=== PATIENT | male | born 1945 | race Caucasian/White ===

== ENCOUNTER 2016-05-17 15:00 | Outpatient (RCR) | payer MEDICARE ==
[2016-05-01] VITALS (14 sets, daily range): BP systolic 106–135; BP diastolic 22–50; PULSE 58–67; TEMP 97.4–98.4
[2016-05-01 12:53] LABS: HEMATOCRIT 16.4 % (42.0-52.0); HEMOGLOBIN 4.5 g/dl (13.5-18.0)
[2016-05-01 18:54] LABS: MEAN CELL VOLUME 93 fl (80.0-100.0); MEAN CORPUSCULAR HGB CONC 30 g/dl (33.0-37.0); MEAN PLATELET VOLUME 9.7 fl (7.4-10.4); PLATELET COUNT 208 K/mm3 (130-400); RED BLOOD COUNT 2.07 M/mm3 (4.20-5.60); REDCELL DISTRIBUTION WIDTH-CV 15.7 % (11.5-14.5); WHITE BLOOD COUNT 5.1 K/mm3 (4.8-10.8)
[2016-05-01 19:05] LABS: HEMATOCRIT 19.3 % (42.0-52.0); MEAN CORPUSCULAR HEMOGLOBIN 28 pg (27.0-31.0)
[2016-05-01 19:06] LABS: HEMOGLOBIN 5.7 g/dl (13.5-18.0)
[~2016-05-17] VITALS: Ht 175.3 cm; Wt 102.0 kg
[2016-05-17] VITALS (9 sets, daily range): BP systolic 105–146; BP diastolic 32–58; PULSE 55–65; TEMP 97.4–98.2
[~2016-05-17 15:00] MED LIST: ASPIRIN E.C. 8181 MG PO; CARDIOSTEROL; CENTRUM SILVER1 CTB PO; COLCRYS0.6 MG PO; FERROUS SU325 MG/TAB PO; FISH OIL1000 MG PO; GLUCOPHAGE500 MG/TAB PO; LOPRESSOR 550 MG/TAB PO; MEVACOR40 MG PO; NIACIN500 M3 PO; NIACOR500 MG PO; NORCO 325 MG-51 TAB PO; PRILOSEC 20MG20 MG PO; PRINIVIL20 MG PO; SYNTHROID0.175 MG PO; TRADJENTA5 MG PO; VITAMIN D1000 IU PO; ZYLOPRIM 300MG300 MG PO
[2016-05-17 22:25] LABS: HEMATOCRIT 24.8 % (42.0-52.0); HEMOGLOBIN 7.4 g/dl (13.5-18.0)
== END 2016-07-30 | disposition home or self-care (01) ==
LOC: EUO
PROVIDERS: Family Medicine
DX: D64.89 Other specified anemias (principal)
CPT/HCPCS: J7050; P9016

== ENCOUNTER 2016-06-25 10:52 | Outpatient (RCR) | payer MEDICARE ==
[~2016-06-25] VITALS: Ht 175.3 cm; Wt 102.2 kg
[2016-06-25] VITALS (8 sets, daily range): BP systolic 107–146; BP diastolic 36–54; PULSE 56–59; TEMP 97.3–98.2
[2016-06-25 18:29] LABS: HEMATOCRIT 24.3 % (42.0-52.0); HEMOGLOBIN 7.2 g/dl (13.5-18.0)
== END 2016-06-25 17:21 | disposition home or self-care (01) ==
LOC: EUO 10:52
PROVIDERS: Family Medicine
DX: K31.819 Angiodysplasia of stomach and duodenum without bleeding (principal); D64.9 Anemia, unspecified
CPT/HCPCS: P9016

== ENCOUNTER 2017-04-03 06:17 | Observation (INO) | payer MEDICARE ==
[~2017-04-03] VITALS: Ht 180.3 cm; Wt 112.0 kg
[2017-04-03] VITALS (23 sets, daily range): BP systolic 108–157; BP diastolic 45–68; PULSE 57–64; TEMP 97.4–98.2
[2017-04-04 04:08] VITALS: BP 164/50; PULSE 51; TEMP 98.3
== END 2017-04-04 09:50 | disposition home or self-care (01) ==
LOC: SDCO 06:17 → SURG 16:14 → SDCO 16:19 → SURG 16:19
DX: K43.9 Ventral hernia without obstruction or gangrene (principal); K42.9 Umbilical hernia without obstruction or gangrene; Z79.82 Long term (current) use of aspirin; E11.9 Type 2 diabetes mellitus without complications; Z79.84 Long term (current) use of oral hypoglycemic drugs; E78.00 Pure hypercholesterolemia, unspecified; E03.9 Hypothyroidism, unspecified; G47.30 Sleep apnea, unspecified; I25.2 Old myocardial infarction; I11.9 Hypertensive heart disease without heart failure; K21.9 Gastro-esophageal reflux disease without esophagitis; Z80.1 Family history of malignant neoplasm of trachea, bronchus and lung; Z86.73 Personal history of transient ischemic attack (TIA), and cerebral infarction without residual deficits
CPT/HCPCS: C1713; C1781; G0378; J0360; J0690; J1100; J1885; J2405; J2704; J2710; J3010; J7120

== ENCOUNTER 2018-03-04 10:14 | Outpatient (CLI) | payer MEDICARE ==
[2018-03-04] VITALS (10 sets, daily range): BP systolic 119–135; BP diastolic 32–47; PULSE 46–58; TEMP 96.9–97.4
[~2018-03-04] VITALS: Ht 180.3 cm; Wt 111.5 kg
[2018-03-04 16:15] LABS: HEMATOCRIT 26.8 % (42.0-52.0); HEMOGLOBIN 8.2 g/dl (13.5-18.0)
== END 2018-03-04 16:19 | disposition home or self-care (01) ==
LOC: EUO 10:14
PROVIDERS: Family Medicine
DX: D62 Acute posthemorrhagic anemia (principal); K31.819 Angiodysplasia of stomach and duodenum without bleeding
CPT/HCPCS: J7050; P9016

== ENCOUNTER 2018-06-10 08:00 | Outpatient (RCR) | payer MEDICARE ==
[2018-06-10] VITALS (9 sets, daily range): BP systolic 112–145; BP diastolic 41–67; PULSE 48–53; TEMP 97.2–98.5
== END 2018-06-10 14:00 ==
LOC: EUO 08:00
DX: D62 Acute posthemorrhagic anemia (principal)
CPT/HCPCS: J7050; P9016

== ENCOUNTER 2019-09-15 08:40 | Day surgery (SDC) | payer MEDICARE ==
[2019-09-15] VITALS (273 sets, daily range): BP systolic 121–151; BP diastolic 56–70; PULSE 42–57; TEMP 97.3–98.5; O2SAT 92–100
[~2019-09-15] VITALS: Ht 180.3 cm; Wt 112.5 kg
[~2019-09-15 08:40] MED LIST changes: -PRINIVIL20 MG PO; +PRINIVIL5 MG PO
[2019-09-15 09:30] LABS: INR 1.1 (0.8-3.0); PROTHROMBIN TIME 11.9 SECONDS (9.7-12.8)
[2019-09-15] MEDS ORDERED: IMDUR 30MG30 MG/TAB PO (09:32)
[2019-09-15 09:33] LABS: PARTIAL THROMBOPLASTIN TIME 34.5 SECONDS (26.0-37.0)
[2019-09-15 09:41] LABS: HEMATOCRIT 30.6 % (42.0-52.0); HEMOGLOBIN 9.9 g/dl (13.5-18.0); MEAN CELL VOLUME 104 fl (80.0-100.0); MEAN CORPUSCULAR HEMOGLOBIN 34 pg (27.0-31.0); MEAN CORPUSCULAR HGB CONC 32 g/dl (33.0-37.0); MEAN PLATELET VOLUME 10.5 fl (7.4-10.4); PLATELET COUNT 136 K/mm3 (130-400); RED BLOOD COUNT 2.95 M/mm3 (4.20-5.60); REDCELL DISTRIBUTION WIDTH-CV 14.6 % (11.5-14.5)
[2019-09-15 09:43] LABS: CALCIUM 9.3 mg/dL (8.4-10.2); CREATININE, serum 1.76 (0.66-1.25); POTASSIUM 5.2 mmol/L (3.4-5.0)
--- NOTE | 2019-09-15 10:55 | NUR ---
SEE MERGE DOCUMENTATION FOR MEDICATION ADMINISTRATION AND INTRA/POST PROCEDURE SEDATION ASSESSMENTS.
--- NOTE | 2019-09-15 12:45 | NUR ---
Pt received from aquatic life laborer with nitro drip infusing at 10 mcg/hr.
--- NOTE | 2019-09-15 19:00 | NUR ---
RECEIVED REPORT FROM GRAY TREVIÑO. PT SITTING UP IN BED WATCHING TV ON RA. CALL LIGHT WITHIN REACH.
[2019-09-16] VITALS (262 sets, daily range): BP systolic 119–136; BP diastolic 56–84; PULSE 51–57; TEMP 98–98.5; O2SAT 85–99
--- NOTE | 2019-09-16 03:40 | NUR ---
PT REQUESTS TO USE HOME CPAP MACHINE, HELPED SET UP. 5ML TAKEN OUT OF SAFEGUARD, NO BLEEDING NOTED. GOOD PEDAL PULSES AND COLOR TO RLE. CALL LIGHT WITHIN REACH.
[2019-09-16 05:43] LABS: BASO % 0.6 % (0.0-2.0); EOS # 0.2 (0.0-0.7); EOS % 4.2 % (0-4.0); GRAN # 3.6 (1.4-6.5); GRAN % 76.3 % (42.2-75.2); LYMPH # 0.4 (1.2-3.4); LYMPH % 8.2 % (20.0-51.0); MEAN CELL VOLUME 104 fl (80.0-100.0); MEAN CORPUSCULAR HGB CONC 33 g/dl (33.0-37.0); MEAN PLATELET VOLUME 10.7 fl (7.4-10.4); MONO # 0.5 (0.1-0.6); MONO % 10.5 % (1.7-9.3); PLATELET COUNT 128 K/mm3 (130-400); RED BLOOD COUNT 2.78 M/mm3 (4.20-5.60); REDCELL DISTRIBUTION WIDTH-CV 14.6 % (11.5-14.5)
[2019-09-16 05:48] LABS: HEMATOCRIT 28.9 % (42.0-52.0); HEMOGLOBIN 9.6 g/dl (13.5-18.0); MEAN CORPUSCULAR HEMOGLOBIN 35 pg (27.0-31.0)
[2019-09-16 05:53] LABS: CALCIUM 9.2 mg/dL (8.4-10.2); CREATININE, serum 1.64 (0.66-1.25); POTASSIUM 5.1 mmol/L (3.4-5.0)
[2019-09-16] MEDS ORDERED: RANEXA 500MG T500 MG PO (08:25)
[2019-09-16] MEDS ORDERED: LIPITOR 40MG TA40 MG PO (08:26)
[2019-09-16] MEDS ORDERED: IMDUR 60MG60 MG/TAB PO (08:27)
[2019-09-16] MEDS ORDERED: NORVASC2.5 MG PO (08:28)
--- NOTE | 2019-09-16 10:13 | NUR ---
URSZULA met with the patient to complete initial intake. The patient lives alone in [place]. The patient uses a CPAP and receives supplies from [facility]. The patient is independent with ADLs. The patient's PCP is Dr. Broussard and patient receives medications from [facility] pharmacy. The patient does not have advanced directives in the EMR but states they are completed and designate his brother, Stacy ([phone]). The patient plans to return home at discharge and Stacy will provide transportation. The patient has no concerns about returning home. There are no additional needs at this time.
--- NOTE | 2019-09-16 11:08 | NUR ---
Patient discharged. post cath instructions reviewed. follow up appointment and medication changes reviewed. patient is taken home by his brother.
== END 2019-09-16 11:05 | disposition home or self-care (01) ==
LOC: COL.CAR 08:40 → ICU 13:17 → COL.CAR 09-16 11:05
PROVIDERS: Internal Medicine Cardiovascular Disease
DX: I25.110 Atherosclerotic heart disease of native coronary artery with unstable angina pectoris (principal); I08.0 Rheumatic disorders of both mitral and aortic valves; I10 Essential (primary) hypertension; I25.2 Old myocardial infarction; E11.9 Type 2 diabetes mellitus without complications; E78.5 Hyperlipidemia, unspecified; M10.9 Gout, unspecified; Z95.1 Presence of aortocoronary bypass graft; Z79.82 Long term (current) use of aspirin; Z88.8 Allergy status to other drugs, medicaments and biological substances; Z79.84 Long term (current) use of oral hypoglycemic drugs; Z11.59 Encounter for screening for other viral diseases
CPT/HCPCS: OP; C1725; C1760; C1769; C1887; C1894; J0583; J1644; J2250; J3010; Q9967

== ENCOUNTER 2019-12-24 15:36 | Outpatient (RCR) | payer MEDICARE ==
[~2019-12-24 15:36] MED LIST changes: +IMDUR 30MG30 MG/TAB PO; +IMDUR 60MG60 MG/TAB PO; +LIPITOR 40MG TA40 MG PO; +NORVASC2.5 MG PO; +RANEXA 500MG T500 MG PO
== END 2019-12-27 16:27 | disposition home or self-care (01) ==
LOC: COL.CR 15:36
DX: Z48.812 Encounter for surgical aftercare following surgery on the circulatory system (principal); I20.0 Unstable angina

== ENCOUNTER 2020-01-31 13:57 | Outpatient (RCR) | payer MEDICARE ==
[2020-01-31] VITALS (9 sets, daily range): BP systolic 107–129; BP diastolic 41–89; PULSE 56–59; TEMP 97.9–98.7
[~2020-01-31] VITALS: Ht 180.3 cm; Wt 106.8 kg
[~2020-01-31 13:57] MED LIST changes: +GLUCOPHAGE XR500 M1 PO; -GLUCOPHAGE500 MG/TAB PO
[2020-01-31] MEDS ORDERED: NITROSTAT0.4 MG/TAB SL (16:13)
== END 2020-02-01 06:58 | disposition home or self-care (01) ==
LOC: EUO 13:57
DX: D62 Acute posthemorrhagic anemia (principal)
CPT/HCPCS: J7050; P9016

== ENCOUNTER 2021-03-23 11:05 | Inpatient (IN) | payer MEDICARE ==
[2021-03-23] VITALS (240 sets, daily range): BP systolic 121–140; BP diastolic 58–71; PULSE 77–90; TEMP 97.8–98.2; O2SAT 82–100
[~2021-03-23] VITALS: Ht 180.3 cm; Wt 107.2 kg
[~2021-03-23 11:05] MED LIST changes: +NITROSTAT0.4 MG/TAB SL
[2021-03-23 11:57] LABS: BASO # 0.1 K/mm3 (0.0-0.2); BASO % 0.4 % (0.0-2.0); EOS % 0.1 % (0.0-4.0); GRAN # 10.2 K/mm3 (1.4-6.5); HEMATOCRIT 37.1 % (42.0-52.0); HEMOGLOBIN 12.1 g/dl (13.5-18.0); LYMPH # 0.6 K/mm3 (1.2-3.4); LYMPH % 5.1 % (20.0-51.0); MEAN CELL VOLUME 104 fl (80.0-100.0); MEAN CORPUSCULAR HEMOGLOBIN 34 pg (27-31); MEAN CORPUSCULAR HGB CONC 33 g/dl (33.0-37.0); MEAN PLATELET VOLUME 10.5 fl (7.4-10.4); MONO # 1.4 K/mm3 (0.1-0.6); MONO % 10.9 % (1.7-9.3); PLATELET COUNT 294 K/mm3 (130-400); RED BLOOD COUNT 3.57 M/mm3 (4.20-5.60); REDCELL DISTRIBUTION WIDTH-CV 15.1 % (11.5-14.5)
[2021-03-23 12:09] LABS: ALBUMIN 3.1 gm/dL (3.4-4.8); BILIRUBIN,TOTAL 1.4 mg/dL (0.2-1.2); C-REACTIVE PROTEIN 29.9 mg/dL (0.00-0.50); CALCIUM 9.4 mg/dL (8.4-10.2); CREATININE, serum 4.44 mg/dL (0.72-1.25); TOTAL PROTEIN 7.8 gm/dL (6.2-8.1)
[2021-03-23 12:22] LABS: POTASSIUM 4.2 mmol/L (3.5-4.5); TROPONIN-I 0.068 ng/mL (0.00-0.033)
[2021-03-23 13:39] LABS: ARTERIAL BLD GAS TCO2 CT 15.2; ARTERIAL BLOOD GAS BASE EXCESS -8.2 (-2-2); ARTERIAL BLOOD GAS HCO3 14.5 meq/L (22-26); ARTERIAL BLOOD GAS PO2 56.5 mmHg (80-100); ARTERIAL BLOOD GAS pH 7.41 (7.35-7.45)
[2021-03-23 13:40] LABS: ARTERIAL BLOOD GAS PCO2 23.3 mmHg (35-45)
[2021-03-23 15:10] LABS: ARTERIAL BLOOD GAS pH 7.39 (7.35-7.45)
[2021-03-23 15:11] LABS: ARTERIAL BLD GAS O2 SATURATION 92.2 % (92-100); ARTERIAL BLOOD GAS BASE EXCESS -9.7 (-2-2); ARTERIAL BLOOD GAS HCO3 13.5 meq/L (22-26); ARTERIAL BLOOD GAS PCO2 22.9 mmHg (35-45)
[2021-03-23 18:40] LABS: PARTIAL THROMBOPLASTIN TIME 30.4 SECONDS (26.0-37.0)
[2021-03-23] MEDS ORDERED: IMDUR 60MG60 MG/TAB PO (19:21)
[2021-03-23] MEDS ORDERED: LIPITOR 40MG TA40 MG PO (19:22)
[2021-03-23] MEDS ORDERED: RANEXA 500MG T500 MG PO (19:22)
[2021-03-23] MEDS ORDERED: NORVASC2.5 MG PO (19:22)
[2021-03-23] MEDS ORDERED: LOPRESSOR 550 MG/TAB PO (19:22)
[2021-03-23 19:23] LABS: ARTERIAL BLD GAS O2 SATURATION 97.3 % (92-100); ARTERIAL BLD GAS TCO2 CT 16.3; ARTERIAL BLOOD GAS BASE EXCESS -7.9 (-2-2); ARTERIAL BLOOD GAS HCO3 15.5 meq/L (22-26); ARTERIAL BLOOD GAS PCO2 26.4 mmHg (35-45); ARTERIAL BLOOD GAS pH 7.39 (7.35-7.45)
[2021-03-23] MEDS ORDERED: GLUCOPHAGE XR500 M1 PO (19:23)
[2021-03-23] MEDS ORDERED: PRINIVIL5 MG PO (19:23)
[2021-03-23] MEDS ORDERED: SYNTHROID 0.10.15 MG PO (19:23)
[2021-03-23] MEDS ORDERED: ZYLOPRIM 300MG300 MG PO (19:24)
--- NOTE | 2021-03-23 21:45 | NUR ---
Assessment complete and charted. Patient alert and orientated on bipap. Denies needs. Call light in reach.
[2021-03-24] VITALS (734 sets, daily range): BP systolic 122–150; BP diastolic 32–80; PULSE 66–81; TEMP 96.5–98.8; O2SAT 76–100
--- NOTE | 2021-03-24 05:49 | NUR ---
Patient had uneventful night. Remained on bipap during night without difficulty. Denies needs this AM. Call light in reach.
--- NOTE | 2021-03-24 07:09 | NUR ---
Report given to GRAY Parikh
[2021-03-24 07:27] LABS: MEAN CELL VOLUME 102 fl (80.0-100.0); MEAN CORPUSCULAR HGB CONC 33 g/dl (33.0-37.0); MEAN PLATELET VOLUME 10.4 fl (7.4-10.4); PLATELET COUNT 212 K/mm3 (130-400); RED BLOOD COUNT 2.98 M/mm3 (4.20-5.60); REDCELL DISTRIBUTION WIDTH-CV 14.9 % (11.5-14.5)
[2021-03-24 07:28] LABS: HEMATOCRIT 30.5 % (42.0-52.0); MEAN CORPUSCULAR HEMOGLOBIN 34 pg (27-31)
[2021-03-24 07:39] LABS: ALBUMIN 2.5 gm/dL (3.4-4.8); BILIRUBIN,TOTAL 0.8 mg/dL (0.2-1.2); CALCIUM 8.6 mg/dL (8.4-10.2); CREATININE, serum 3.39 mg/dL (0.72-1.25); POTASSIUM 4.3 mmol/L (3.5-4.5); TOTAL PROTEIN 6.4 gm/dL (6.2-8.1)
--- NOTE | 2021-03-24 08:00 | NUR ---
Shift assessment complete. All GTTs, lines, checked, VSS. Pt still on BIPAP. During morning med pass, BIPAP was removed for PO medication. PT was able to have a sip of water before medication, PT coughed a lot and stated " felt like the water went down the wrong tube." PO medication was held and BIPAP placed back on after PT stopped coughing. PT SATs fell to 79 % during this time, once BIPAP was placed, PT SATs went to 100 % quickly.
[2021-03-24 08:25] LABS: COLLECTION METHOD CLEAN CATCH
[2021-03-24 08:33] LABS: MUCOUS Present (NOT PRESENT); PH 5 (5-8); SQUAMOUS EPITHELIAL None Seen /hpf (0-10); URINE APPEARANCE Hazy (CLEAR/HAZY); URINE BACTERIA None Seen /hpf (NONE SEEN); URINE BILIRUBIN Negative (NEGATIVE); URINE BLOOD Negative (NEGATIVE); URINE COLOR Amber (YELLOW); URINE GLUCOSE Negative (NEGATIVE); URINE KETONE Trace (NEGATIVE); URINE LEUKOCYTE ESTERASE Negative (NEGATIVE); URINE NITRATE Negative (NEGATIVE); URINE PROTEIN(semi-quant) 1+ (NEGATIVE); URINE RBC 0-2 /hpf (0-2); URINE UROBILINOGEN Negative (NEGATIVE); URINE WBC 0-2 /hpf (0-2)
--- NOTE | 2021-03-24 09:00 | NUR ---
US tech at bedside performing ECHO.
[2021-03-24 09:03] LABS: HYPOCHROMIA 1+; LYMPHOCYTE 3 % (20.0-51.0); NEUTROPHILS 94 % (42.0-75.2); PLATELET ESTIMATE NORMAL (NORMAL)
--- NOTE | 2021-03-24 09:40 | NUR ---
HEPXA- AT GOAL NO CHANGE
--- NOTE | 2021-03-24 13:56 | NUR ---
Budget And Policy Analyst contacted patient's brother, Stacy (ph#[phone]) to complete initial intake as patient is on bipap in isolation for covid. Stacy reports he is actually admitted to the hospital as well in room 301. Per Stacy, patient lives alone in [place] and sees Dr. Broussard for primary care. Patient does not normally use any DME and is independent with ADLS. Stacy states patient does have many health issues. Stacy advised that he is not sure if patient has any Advance Directives. Per Stacy, patient is , has no children, and his parents are . Patient has two brothers, Stacy and Tk, who lives in [place]. Discharge Plan: Pending, patient currently on bipap
[2021-03-24 14:50] LABS: ARTERIAL BLD GAS O2 SATURATION 90.9 % (92-100); ARTERIAL BLD GAS TCO2 CT 15.4; ARTERIAL BLOOD GAS BASE EXCESS -8.2 (-2-2); ARTERIAL BLOOD GAS HCO3 14.7 meq/L (22-26); ARTERIAL BLOOD GAS PO2 58.7 mmHg (80-100); ARTERIAL BLOOD GAS pH 7.41 (7.35-7.45)
[2021-03-24 14:51] LABS: ARTERIAL BLOOD GAS PCO2 23.7 mmHg (35-45)
[2021-03-24 16:12] LABS: HEMOGLOBIN 9.5 g/dl (13.5-18.0)
--- NOTE | 2021-03-24 19:56 | NUR ---
Assessment complete and charted. Patient on bipap. Denies needs. Call light in reach.
[2021-03-24 21:48] LABS: CREATININE, serum 2.89 mg/dL (0.72-1.25)
[2021-03-24 21:58] LABS: FRACTIONAL EXCRETION OF NA+ 0.76 %
[2021-03-25] VITALS (680 sets, daily range): BP systolic 128–161; BP diastolic 62–109; PULSE 69–98; TEMP 98.6–99.6; O2SAT 83–100
--- NOTE | 2021-03-25 06:36 | NUR ---
Patient remained on bipap throughout night. Resting in bed this AM. Call light in reach.
[2021-03-25 06:38] LABS: BASO % 0.2 % (0.0-2.0); GRAN % 89.1 % (42.2-75.2); HEMOGLOBIN 10.1 g/dl (13.5-18.0); LYMPH # 0.3 K/mm3 (1.2-3.4); LYMPH % 2.8 % (20.0-51.0); MEAN CELL VOLUME 102 fl (80.0-100.0); MEAN CORPUSCULAR HEMOGLOBIN 34 pg (27-31); MEAN CORPUSCULAR HGB CONC 33 g/dl (33.0-37.0); MEAN PLATELET VOLUME 10.4 fl (7.4-10.4); MONO # 0.9 K/mm3 (0.1-0.6); MONO % 6.9 % (1.7-9.3); PLATELET COUNT 222 K/mm3 (130-400); RED BLOOD COUNT 2.98 M/mm3 (4.20-5.60); REDCELL DISTRIBUTION WIDTH-CV 15.1 % (11.5-14.5)
[2021-03-25 06:40] LABS: HEMATOCRIT 30.5 % (42.0-52.0)
[2021-03-25 07:06] LABS: ALBUMIN 2.5 gm/dL (3.4-4.8); BILIRUBIN,TOTAL 0.7 mg/dL (0.2-1.2); CALCIUM 8.8 mg/dL (8.4-10.2); CREATININE, serum 2.74 mg/dL (0.72-1.25); POTASSIUM 3.8 mmol/L (3.5-4.5); TOTAL PROTEIN 6.3 gm/dL (6.2-8.1)
--- NOTE | 2021-03-25 07:15 | NUR ---
Report given to GRAY Parikh
[2021-03-25 07:32] LABS: BILIRUBIN,DIRECT 0.4 mg/dL (0.0-0.5)
--- NOTE | 2021-03-25 08:00 | NUR ---
Assessment complete. All lines, GTTs checked and verified. PT denies any pain or needs at this time. Call light within reach. PT is still on BIPAP.
[2021-03-25 08:57] LABS: ARTERIAL BLD GAS O2 SATURATION 92.3 % (92-100); ARTERIAL BLD GAS TCO2 CT 16.6; ARTERIAL BLOOD GAS BASE EXCESS -6.5 (-2-2); ARTERIAL BLOOD GAS HCO3 15.9 meq/L (22-26); ARTERIAL BLOOD GAS pH 7.45 (7.35-7.45)
[2021-03-25 08:58] LABS: ARTERIAL BLOOD GAS PCO2 23.7 mmHg (35-45)
--- NOTE | 2021-03-25 11:21 | NUR ---
PT placed on CPAP.
[2021-03-26] VITALS (664 sets, daily range): BP systolic 114–150; BP diastolic 64–86; PULSE 69–97; TEMP 98–99.2; O2SAT 74–100
[2021-03-26 04:02] LABS: ARTERIAL BLD GAS O2 SATURATION 93.3 % (92-100); ARTERIAL BLD GAS TCO2 CT 18.5; ARTERIAL BLOOD GAS BASE EXCESS -6.1 (-2-2); ARTERIAL BLOOD GAS HCO3 17.7 meq/L (22-26); ARTERIAL BLOOD GAS PCO2 25.3 mmHg (35-45); ARTERIAL BLOOD GAS PO2 65.2 mmHg (80-100); ARTERIAL BLOOD GAS pH 7.46 (7.35-7.45)
[2021-03-26 05:01] LABS: MEAN CELL VOLUME 100 fl (80.0-100.0); MEAN CORPUSCULAR HGB CONC 34 g/dl (33.0-37.0); MEAN PLATELET VOLUME 10.6 fl (7.4-10.4); PLATELET COUNT 207 K/mm3 (130-400); REDCELL DISTRIBUTION WIDTH-CV 15.2 % (11.5-14.5)
[2021-03-26 05:04] LABS: HEMOGLOBIN 9.5 g/dl (13.5-18.0); MEAN CORPUSCULAR HEMOGLOBIN 34 pg (27-31)
[2021-03-26 05:15] LABS: CALCIUM 8.9 mg/dL (8.4-10.2); CREATININE, serum 2.42 mg/dL (0.72-1.25)
[2021-03-26 05:47] LABS: BASOPHIL 1 % (0-2); LYMPHOCYTE 3 % (20.0-51.0); METAMYELOCYTE 1 % (0-0); NEUTROPHILS 90 % (42.0-75.2)
[2021-03-26 05:48] LABS: PLATELET ESTIMATE NORMAL (NORMAL)
[2021-03-26 05:51] LABS: BURR CELLS 2+; SCHISTOCYTES 1+
--- NOTE | 2021-03-26 09:36 | NUR ---
CALLED DR. CAMPOVERDE FOR GI CONSULT THIS MORNING AT APPROX 0930
[2021-03-26 11:55] LABS: ALBUMIN 2.4 gm/dL (3.4-4.8); BILIRUBIN,DIRECT 0.4 mg/dL (0.0-0.5); BILIRUBIN,TOTAL 0.5 mg/dL (0.2-1.2)
--- NOTE | 2021-03-26 18:43 | NUR ---
Patient remained in afib/aflutter throughout the day with a heart rate that stayed fairly consistently in the 70s-80s. He tried a trial on Airvo this morning, but patient was only satting around 84-85% and went back on the BiPAP (in CPAP mode) where he sats mid to high 90s. GI was consulted this morning and will continue to monitor Hgb levels for the next couple of days and decide on a course of action if levels begin to decline. Patient had a consult with speech therapy as well today, and they gave the ok to proceed with liquids and pureed/soft foods as long as he gets some ice first to wet his mouth, and only takes one sip at a time.
--- NOTE | 2021-03-26 20:00 | NUR ---
PATIENT IS NERVOUS HAS VISIBLE SHAKES OF HANDS, PLAYING WITH CELL PHONE
[2021-03-27] VITALS (434 sets, daily range): BP systolic 130–151; BP diastolic 70–90; PULSE 75–92; TEMP 97.1–98.7; O2SAT 77–99
[2021-03-27 04:45] LABS: MEAN CELL VOLUME 101 fl (80.0-100.0); MEAN CORPUSCULAR HGB CONC 34 g/dl (33.0-37.0); MEAN PLATELET VOLUME 10.6 fl (7.4-10.4); PLATELET COUNT 191 K/mm3 (130-400); RED BLOOD COUNT 2.86 M/mm3 (4.20-5.60); REDCELL DISTRIBUTION WIDTH-CV 15.4 % (11.5-14.5)
[2021-03-27 04:46] LABS: ARTERIAL BLD GAS O2 SATURATION 89.7 % (92-100); ARTERIAL BLD GAS TCO2 CT 18.7; ARTERIAL BLOOD GAS BASE EXCESS -4.5 (-2-2); ARTERIAL BLOOD GAS HCO3 17.8 meq/L (22-26); ARTERIAL BLOOD GAS PO2 56.2 mmHg (80-100); ARTERIAL BLOOD GAS pH 7.42 (7.35-7.45)
[2021-03-27 04:58] LABS: HEMATOCRIT 28.9 % (42.0-52.0); HEMOGLOBIN 9.7 g/dl (13.5-18.0); MEAN CORPUSCULAR HEMOGLOBIN 34 pg (27-31)
[2021-03-27 05:06] LABS: CALCIUM 9.2 mg/dL (8.4-10.2); CREATININE, serum 2.13 mg/dL (0.72-1.25); POTASSIUM 4.1 mmol/L (3.5-4.5)
--- NOTE | 2021-03-27 07:29 | NUR ---
Report received from GRAY Can; patient did well overnight and is currently resting comfortably. Patient still in afib/aflutter, and O2 sat ranges are lower than what they were running yesterday; currently O2 sat is 91% with the same settings on the BiPAP and will get as low as 88%, whereas yesterday they were ranging from mid to high 90%s. All other vitals remain approximately the same as yesterday.
[2021-03-27 10:14] LABS: ALBUMIN 2.4 gm/dL (3.4-4.8); BILIRUBIN,TOTAL 0.6 mg/dL (0.2-1.2); MAGNESIUM 2.5 mg/dL (1.6-2.6)
--- NOTE | 2021-03-27 11:38 | NUR ---
order worker contacted Dr Broussard's office and secured a copy of patient's living will and durable power of united states attorney to be placed on the medical record. Patient's durable power of united states attorney names agents Norman Pastrana (who is currently hospitalized) and the alternative agent as Tk Horacio Pastrana. Worker contacted Tk and spoke with his , Jessika, to confirm the above information. Numbers for Tk, who lives in [place], [place], are #[phone] c#[phone]. Jessika's c#[phone]. Worker contacted patient's niece, Chika, and advised of the above information. Patient's niece, Imelda Keyes #[phone] is patient's garbage person to receive patient's daily update information. Chika advised that patient lives alone in [place] and had been in bed for 10 days before a niece found him. Worker provided information on discharge planning and utilization of LTACH. Patient's brother, Norman Pastrana (Pat) is very appreciative to receive patient's medical information, even though he is hospitalized at this time.
--- NOTE | 2021-03-27 15:49 | NUR ---
fellmongery worker helped facility a zoom meeting with patient and his brother, Stacy and brother Tk (durable power of attorneys) to discuss patient's future care wishes. Worker spoke with Imelda suárez [phone], and advised of the above as Imelda requested that a meeting be set up because patient's brothers did not know patient's wishes for continued care. Patient may need to be placed on a ventilator soon.
--- NOTE | 2021-03-27 20:00 | NUR ---
Assessment complete and charted. Patient alert and orientated. Incontinent of stool. Cares provided. Denies needs at this time. Call light in reach.
--- NOTE | 2021-03-27 21:13 | NUR ---
Patient TPN filter clogged. Clinamix bag noted to be hazey with back primed lipids in bag. TPN stopped and contacted in house pharmacist. Spoke with Tereza. Explained situation. Per Tereza, remove 0.22 filter from clinamix. Run clinamix and lipid through 1.2 micron filter for tonight and will reassess in morning. Will resume TPN and lipids at ordered rate.
[2021-03-28] VITALS (759 sets, daily range): BP systolic 94–165; BP diastolic 74–121; PULSE 72–109; TEMP 97.2–98.7; O2SAT 69–98
[2021-03-28 04:39] LABS: ARTERIAL BLD GAS O2 SATURATION 95.7 % (92-100); ARTERIAL BLD GAS TCO2 CT 16.6; ARTERIAL BLOOD GAS BASE EXCESS -7.5 (-2-2); ARTERIAL BLOOD GAS HCO3 15.8 meq/L (22-26); ARTERIAL BLOOD GAS PCO2 25.5 mmHg (35-45); ARTERIAL BLOOD GAS pH 7.41 (7.35-7.45)
[2021-03-28 04:47] LABS: MEAN CELL VOLUME 104 fl (80.0-100.0); MEAN CORPUSCULAR HGB CONC 32 g/dl (33.0-37.0); PLATELET COUNT 197 K/mm3 (130-400); RED BLOOD COUNT 2.94 M/mm3 (4.20-5.60); REDCELL DISTRIBUTION WIDTH-CV 15.9 % (11.5-14.5)
[2021-03-28 04:58] LABS: HEMOGLOBIN 9.8 g/dl (13.5-18.0); MEAN CORPUSCULAR HEMOGLOBIN 33 pg (27-31)
[2021-03-28 04:59] LABS: HEMATOCRIT 30.5 % (42.0-52.0)
[2021-03-28 05:20] LABS: CALCIUM 9.4 mg/dL (8.4-10.2); CREATININE, serum 2.04 mg/dL (0.72-1.25); MAGNESIUM 2.5 mg/dL (1.6-2.6); PHOSPHOROUS 3.3 mg/dL (2.3-4.7); POTASSIUM 4.1 mmol/L (3.5-4.5)
[2021-03-28 06:01] LABS: BAND 5 % (0-10); NEUTROPHILS 87 % (42.0-75.2)
[2021-03-28 06:02] LABS: BURR CELLS 2+; LYMPHOCYTE 3 % (20.0-51.0); METAMYELOCYTE 1 % (0-0); PLATELET ESTIMATE NORMAL (NORMAL)
[2021-03-28 06:03] LABS: ANISOCYTOSIS 1+
[2021-03-28 06:04] LABS: HYPOCHROMIA 1+
--- NOTE | 2021-03-28 07:08 | NUR ---
Report given to GRAY Salgado
[2021-03-29] VITALS (724 sets, daily range): BP systolic 86–186; BP diastolic 59–117; PULSE 72–141; TEMP 97.5–99; O2SAT 68–100
--- NOTE | 2021-03-29 01:18 | NUR ---
PATIENT NOTED TO HAVE CONSISTENT PULSE OX INTO THE MID 80'S INCREASED FIO2 ON BI PAP TO 100% DUE TO RECENT COUGHING EPISODE AND ADMINISTERED GUIAFENISEN PER ORDERS
--- NOTE | 2021-03-29 02:45 | NUR ---
NOTED PATIENT PULSE OX CONSISTENTLY IN THE MID 80'S DESPITE CHANGE OF PULSE OX SENSOR INCREASED FIO2 TO 100%
[2021-03-29 05:03] LABS: ARTERIAL BLD GAS O2 SATURATION 93.5 % (92-100); ARTERIAL BLOOD GAS BASE EXCESS -10.9 (-2-2); ARTERIAL BLOOD GAS HCO3 14.1 meq/L (22-26); ARTERIAL BLOOD GAS PCO2 29.2 mmHg (35-45); ARTERIAL BLOOD GAS PO2 76.4 mmHg (80-100)
[2021-03-29 05:14] LABS: HEMOGLOBIN 10.6 g/dl (13.5-18.0); MEAN CELL VOLUME 105 fl (80.0-100.0); MEAN CORPUSCULAR HEMOGLOBIN 33 pg (27-31); MEAN CORPUSCULAR HGB CONC 32 g/dl (33.0-37.0); MEAN PLATELET VOLUME 11.5 fl (7.4-10.4); PLATELET COUNT 194 K/mm3 (130-400)
[2021-03-29 05:21] LABS: HEMATOCRIT 33.6 % (42.0-52.0)
[2021-03-29 05:38] LABS: CALCIUM 9.5 mg/dL (8.4-10.2); CREATININE, serum 2.1 mg/dL (0.72-1.25); MAGNESIUM 2.3 mg/dL (1.6-2.6); PHOSPHOROUS 4.8 mg/dL (2.3-4.7); POTASSIUM 4.5 mmol/L (3.5-4.5)
[2021-03-29 06:05] LABS: ANISOCYTOSIS 1+; BAND 9 % (0-10); EOSINOPHIL 1 % (0-4); HYPOCHROMIA 1+; LYMPHOCYTE 5 % (20.0-51.0); METAMYELOCYTE 1 % (0-0); NEUTROPHILS 78 % (42.0-75.2); SCHISTOCYTES 1+
--- NOTE | 2021-03-29 07:00 | NUR ---
Pt on bipap at 100%. Pt is tachycardiac in the 110's. Will continue to montior.
--- NOTE | 2021-03-29 08:50 | NUR ---
PT INTUBATED AT 0853 BY ADRIANNE CANTOR CRNA. PT HAS A 8.0 ET TUBE 25CM AT THE TEETH. 0905 BILATERAL SOFT WRIST RESTRAINTS PLACED. 0912 SEDATION STARTED 0916 14F OG PLACED 65 AT THE LIP. 0917 16F VELARDE CATHETER PLACED. 1000 PT STILL TACHYCARDIC. SYED CASTELLANO WITH CARDIOLOGY NOTIFIED. ORDERS RECEIVED.
[2021-03-29 12:13] LABS: ARTERIAL BLD GAS O2 SATURATION 88.1 % (92-100); ARTERIAL BLD GAS TCO2 CT 16.8; ARTERIAL BLOOD GAS BASE EXCESS -10.8 (-2-2); ARTERIAL BLOOD GAS HCO3 15.6 meq/L (22-26); ARTERIAL BLOOD GAS PCO2 36.8 mmHg (35-45); ARTERIAL BLOOD GAS PO2 65.1 mmHg (80-100); ARTERIAL BLOOD GAS pH 7.25 (7.35-7.45)
--- NOTE | 2021-03-29 13:03 | NUR ---
SPOKE WITH REGARDING PT'S ABG'S AND PULSE OX IN THE UPPER 80'S. CHANGES TO VENT SETTING'S MADE, DC PO BICARB, AND PLACE ON BICARB DRIP.
--- NOTE | 2021-03-29 16:51 | NUR ---
NO SEDATION VACATION AT THIS TIME WHILE PT IS PRONED. WILL CONTINUE TO MONITOR.
[2021-03-29 20:40] LABS: ARTERIAL BLD GAS O2 SATURATION 86.5 % (92-100); ARTERIAL BLD GAS TCO2 CT 18.1; ARTERIAL BLOOD GAS BASE EXCESS -10.1 (-2-2); ARTERIAL BLOOD GAS HCO3 16.9 meq/L (22-26); ARTERIAL BLOOD GAS PO2 59.3 mmHg (80-100); ARTERIAL BLOOD GAS pH 7.23 (7.35-7.45)
[2021-03-30] VITALS (658 sets, daily range): BP systolic 74–114; BP diastolic 43–79; PULSE 57–123; TEMP 35.3; O2SAT 85–100
--- NOTE | 2021-03-30 03:56 | NUR ---
OBTAINED ORDER FOR BOLUS OF NS FOR PATIENT WELL INCREASED ESMOLOL AT THIS TIME DUE TO HR OUTSIDE OF PARAMETERS AT 124, WILL MONITOR SBP
[2021-03-30 04:31] LABS: MEAN CELL VOLUME 106 fl (80.0-100.0); MEAN CORPUSCULAR HGB CONC 32 g/dl (33.0-37.0); MEAN PLATELET VOLUME 11.3 fl (7.4-10.4); PLATELET COUNT 114 K/mm3 (130-400); RED BLOOD COUNT 2.68 M/mm3 (4.20-5.60); REDCELL DISTRIBUTION WIDTH-CV 16.2 % (11.5-14.5)
--- NOTE | 2021-03-30 04:31 | NUR ---
SPOKE WITH DR AYON AT THIS TIME WHO STATED THAT IF PATIENT WAS IN NSR AND BP WAS WITHIN PARAMETERS HR WAS OK
[2021-03-30 04:44] LABS: CALCIUM 7.8 mg/dL (8.4-10.2); CREATININE, serum 2.64 mg/dL (0.72-1.25); MAGNESIUM 2.1 mg/dL (1.6-2.6); PHOSPHOROUS 6.9 mg/dL (2.3-4.7); POTASSIUM 4.9 mmol/L (3.5-4.5)
[2021-03-30 04:45] LABS: HEMATOCRIT 28.4 % (42.0-52.0); MEAN CORPUSCULAR HEMOGLOBIN 34 pg (27-31)
[2021-03-30 05:21] LABS: BAND 12 % (0-10); EOSINOPHIL 1 % (0-4); HYPOCHROMIA 1+; LYMPHOCYTE 3 % (20.0-51.0); NEUTROPHILS 82 % (42.0-75.2)
--- NOTE | 2021-03-30 05:31 | NUR ---
NOTED PATIENT XA AT THIS TIME OF 0.41, PER ORDERS DECREASE BY 100 UNITS PER HOUR AND OBTAIN NEXT XA IN 6 HOURS
[2021-03-30 05:44] LABS: ARTERIAL BLOOD GAS pH 7.22 (7.35-7.45)
[2021-03-30 05:45] LABS: ARTERIAL BLOOD GAS BASE EXCESS -9.3 (-2-2); ARTERIAL BLOOD GAS HCO3 18.2 meq/L (22-26); ARTERIAL BLOOD GAS PO2 40.2 mmHg (80-100)
--- NOTE | 2021-03-30 05:59 | NUR ---
PATIENT IS PRONE AND WITHIN 24 HOURS OF INTUBATION, NO SEDATION VACATION PERFORMED AT THIS TIME
[2021-03-30 09:36] LABS: ARTERIAL BLD GAS O2 SATURATION 96.7 % (92-100); ARTERIAL BLOOD GAS BASE EXCESS -11.3 (-2-2); ARTERIAL BLOOD GAS HCO3 14.8 meq/L (22-26); ARTERIAL BLOOD GAS PCO2 33.8 mmHg (35-45); ARTERIAL BLOOD GAS PO2 96.3 mmHg (80-100); ARTERIAL BLOOD GAS pH 7.26 (7.35-7.45)
[2021-03-30 09:37] LABS: ARTERIAL BLD GAS TCO2 CT 15.8
--- NOTE | 2021-03-30 18:00 | NUR ---
Placed a rectal temperature probe in patient due to thermometer not reading axillary temps; patient's temp was 91.6 and the warmer was initiated.
--- NOTE | 2021-03-30 19:53 | NUR ---
Sedation was turned off during proning today at approx 1500; patient was responsive and followed commands appropriately.
--- NOTE | 2021-03-30 23:15 | NUR ---
[address] WAGNER NOTE FOR PATIENT TO START ON INSULIN DRIP TODAY AND CONTINUED BLOOD SUGARS GREATER THAN 200, ORDER RECEIVED FOR INSULIN DRIP 2204 NOTIFIED DAVID SNOW OF PATIENT LOW B/P DISCUSSED PATIENT CONDITION AND PREVIOUS INTERVENTIONS WELL FLUID BALANCE AND NEW ORDER FOR 1/2 NS BOLUS INITIATED ORDERED 2299 PATIENT CONTINUES WITH LOW BP, NOTIFIED DAVID SNOW AND ORDERS GIVEN FOR LEVO, REVIEWED MEDICATIONS AND COMPATABILITIES ABLE TO REARRANGE DRIPS TO ACCOMMODATE ALL ORDERS DRIPS WITH COMPATABILITIES,
[2021-03-31] VITALS (600 sets, daily range): BP systolic 76–140; BP diastolic 44–92; PULSE 54–99; TEMP 36.9; O2SAT 67–100
--- NOTE | 2021-03-31 | NUR ---
MINIMAL URINE OUTPUT AT THIS TIME, MADE DAVID SNOW AWARE
[2021-03-31 05:14] LABS: HEMOGLOBIN 10.2 g/dl (13.5-18.0); MEAN CELL VOLUME 106 fl (80.0-100.0); MEAN CORPUSCULAR HEMOGLOBIN 34 pg (27-31); MEAN CORPUSCULAR HGB CONC 32 g/dl (33.0-37.0); MEAN PLATELET VOLUME 11.9 fl (7.4-10.4); PLATELET COUNT 192 K/mm3 (130-400); RED BLOOD COUNT 2.98 M/mm3 (4.20-5.60); REDCELL DISTRIBUTION WIDTH-CV 16.5 % (11.5-14.5)
[2021-03-31 05:28] LABS: HEMATOCRIT 31.5 % (42.0-52.0)
[2021-03-31 05:30] LABS: ARTERIAL BLD GAS TCO2 CT 18.1; ARTERIAL BLOOD GAS BASE EXCESS -9.3 (-2-2); ARTERIAL BLOOD GAS HCO3 16.9 meq/L (22-26); ARTERIAL BLOOD GAS PO2 101.4 mmHg (80-100); ARTERIAL BLOOD GAS pH 7.27 (7.35-7.45)
--- NOTE | 2021-03-31 05:30 | NUR ---
RECEIVED PHONE CALL FROM LAB QUESTIONING VALIDITY OF BLOOD SENT FROM PATIENT THIS NURSE VERIFIED THAT IT WAS ABSOLUTELY THIS PATIENT'S BLOOD, REPORTED THAT PATIENT'S WBC COUNT WAS 31.1 THIS AM UP FROM 11.9 YESTERDAY REPORTED INCREASED WBC COUNT TO DAVID SNOW NEW ORDERS RECEIVED ALSO REMINDED HER THAT PATIENT IS PRODUCING LIMITED AMOUNTS OF URINE APPROX 50 ML THIS SHIFT.
[2021-03-31 05:40] LABS: CALCIUM 7.8 mg/dL (8.4-10.2); CREATININE, serum 3.67 mg/dL (0.72-1.25); MAGNESIUM 2.1 mg/dL (1.6-2.6); PHOSPHOROUS 7.6 mg/dL (2.3-4.7); POTASSIUM 4.9 mmol/L (3.5-4.5)
[2021-03-31 06:21] LABS: ANISOCYTOSIS 2+; BAND 7 % (0-10); BASOPHIL 1 % (0-2); EOSINOPHIL 1 % (0-4); LYMPHOCYTE 4 % (20.0-51.0); NEUTROPHILS 86 % (42.0-75.2); NUCLEATED RED BLOOD CELL 4 (0-6); POLYCHROMASIA 1+
[2021-03-31 06:22] LABS: PLATELET ESTIMATE NORMAL (NORMAL); SCHISTOCYTES 1+
--- NOTE | 2021-03-31 07:30 | NUR ---
RECEIVED BEDSIDE SHIFT REPORT FROM GRAY RAY. PATIENT IS CURRENTLY PRONED. STILL SEDATED AND INTUBATED. PATIENT HAS RIGHT UPPER ARM PICC AND PERIPHERAL SITE STILL IN PLACE. VELARDE CATHETER STILL IN PLACE WITH VERY LOW OUTPUT PER REPORT. SEE GTT TITRATION FLOWSHEET. WILL BE FLIPPING TO SUPINE TODAY.
--- NOTE | 2021-03-31 08:55 | NUR ---
DR. WAGNER AT BEDSIDE. DISCUSSED PLAN OF CARE. ORDERS RECEIVED.
--- NOTE | 2021-03-31 10:07 | NUR ---
DR. CALLOWAY AT BEDSIDE. DISCUSSED PLAN OF CARE. ORDERS RECEIVED.
--- NOTE | 2021-03-31 10:30 | NUR ---
SPOKE TO ROSHAN SANTAMARIA FOR DR. MIRELES REGARDING DECREASED URINE OUTPUT. AGREEABLE TO SIGN BACK ON AND ASSIST WITH KIDNEY ISSUES.
--- NOTE | 2021-03-31 17:00 | NUR ---
PATIENT WAS ON MINIMAL SEDATION FOR TODAY. NO SEDATION VACATION NEEDED
--- NOTE | 2021-03-31 17:48 | NUR ---
CALLED DR. MIRELES BACK AND DISCUSSED CONSULTING SURGERY FOR TUNNELED DIALYSIS CATHETER AND GETTING CONSENT.
--- NOTE | 2021-03-31 18:06 | NUR ---
CALLED DR. TAY REGARDING TUNNELED DIALYSIS CATHETER PLACEMENT. AGREEABLE FOR TOMORROW. SAID HE WOULD PLACE CONSENT ORDERS.
--- NOTE | 2021-03-31 18:18 | NUR ---
UPDATED BROTHERLUIS REGARDING PATIENT'S STATUS.
--- NOTE | 2021-03-31 18:38 | NUR ---
VERBAL CONSENT OBTAINED FROM VAZQUEZ SMITH AND BROTHER OF PATIENT. WITNESSED WITH GRAY BELLA OVER THE PHONE.
--- NOTE | 2021-03-31 19:37 | NUR ---
VERBAL ORDER TO STOP HEPARIN DRIP AT 0300 PRIOR TO TUNNELED CATHETER PLACEMENT PER DR. TAY
[2021-04-01] VITALS (454 sets, daily range): BP systolic 80–130; BP diastolic 42–79; PULSE 69–93; TEMP 35.5; O2SAT 84–100
--- NOTE | 2021-04-01 03:00 | NUR ---
HEPARIN TURNED OFF AT THIS TIME PENDING PLACEMENT OF TUNNELED HEMODIALYSIS CATHETER THIS AM
[2021-04-01 04:29] LABS: MEAN CELL VOLUME 103 fl (80.0-100.0); MEAN CORPUSCULAR HGB CONC 32 g/dl (33.0-37.0); MEAN PLATELET VOLUME 12.4 fl (7.4-10.4); PLATELET COUNT 129 K/mm3 (130-400); RED BLOOD COUNT 2.64 M/mm3 (4.20-5.60); REDCELL DISTRIBUTION WIDTH-CV 16.3 % (11.5-14.5)
[2021-04-01 04:52] LABS: HEMATOCRIT 27.2 % (42.0-52.0); HEMOGLOBIN 8.6 g/dl (13.5-18.0); MEAN CORPUSCULAR HEMOGLOBIN 33 pg (27-31)
[2021-04-01 04:57] LABS: CALCIUM 7.3 mg/dL (8.4-10.2); CREATININE, serum 4.4 mg/dL (0.72-1.25); POTASSIUM 5.1 mmol/L (3.5-4.5)
[2021-04-01 05:17] LABS: ANISOCYTOSIS 2+; BAND 26 % (0-10); BURR CELLS 1+; EOSINOPHIL 1 % (0-4); HYPOCHROMIA 2+; LYMPHOCYTE 3 % (20.0-51.0); NEUTROPHILS 68 % (42.0-75.2); NUCLEATED RED BLOOD CELL 2 (0-6)
--- NOTE | 2021-04-01 05:27 | NUR ---
PATIENT CURRENTLY PRONED SEDATION VACATION NOT PREFORMED AT THIS TIME
[2021-04-01 05:53] LABS: ARTERIAL BLD GAS O2 SATURATION 96.4 % (92-100); ARTERIAL BLD GAS TCO2 CT 19.1; ARTERIAL BLOOD GAS BASE EXCESS -7.5 (-2-2); ARTERIAL BLOOD GAS PCO2 36.2 mmHg (35-45); ARTERIAL BLOOD GAS PO2 92.4 mmHg (80-100); ARTERIAL BLOOD GAS pH 7.31 (7.35-7.45)
--- NOTE | 2021-04-01 07:35 | NUR ---
RECEIVED BEDSIDE SHIFT REPORT FROM GRAY RAY. PATIENT CURRENTLY PRONED AND RESTING IN THE BED WITH EYES CLOSED. STILL SEDATED, INTUBATED WITH VELARDE CATHETER AND RIGHT UPPER ARM PICC STILL IN PLACE, PATENT/DRAINING TO GRAVITY. HEPARIN CURRENTLY ON HOLD FOR TUNNELED DIALYSIS CATHETER PLACEMENT TODAY. SEE GTT TITRATION FLOWSHEET.
--- NOTE | 2021-04-01 08:35 | NUR ---
DR. TAY AT BEDSIDE TO ASSESS PATIENT PRIOR TO TUNNELED DIALYSIS CATHETER PLACEMENT.
--- NOTE | 2021-04-01 10:02 | NUR ---
CALL FROM ANESTHESIA WITH INSTRUCTIONS ON WHAT TO HAVE FOR PATIENT TO BE TRANSPORTED TO SURGERY.
--- NOTE | 2021-04-01 10:12 | NUR ---
DR. CALLOWAY AT BEDSIDE. REPORTED BLOOD IN URINE. DISCUSSED HOLDING ANTICOAGULANTS. SAID SHE WOULD DISCUSS WITH DR. CURRIE.
--- NOTE | 2021-04-01 10:20 | NUR ---
DR. CURRIE AT BEDSIDE. DISCUSSED PLAN OF CARE. AGREEABLE WITH DR. CALLOWAY TO HOLD HEPARIN, Xa AND ASPIRIN.
--- NOTE | 2021-04-01 11:12 | NUR ---
DR. WAGNER AT BEDSIDE. DISCUSSED PLAN OF CARE. ORDERS RECEIVED.
--- NOTE | 2021-04-01 11:24 | NUR ---
ANESTHESIA AT BEDSIDE TO TAKE PATIENT FOR PROCEDURE.
--- NOTE | 2021-04-01 13:12 | NUR ---
PATIENT RETURNED FROM PROCEDURE.
--- NOTE | 2021-04-01 13:32 | NUR ---
ROSHAN SANTAMARIA AT BEDSIDE TO DISCUSS PLAN OF CARE AND UPDATED. ORDERS RECEIVED.
--- NOTE | 2021-04-01 14:05 | NUR ---
SPOKE TO DR. MIRELES ABOUT WHETHER WE WERE PLANNING ON DIALYSIS TODAY OR TOMORROW. SAID IT WOULD BE EARLY TOMORROW 04/02/21
--- NOTE | 2021-04-01 14:14 | NUR ---
REPORTED TO DR. WAGNER REGARDING PATIENT'S HYPOTHERMIA. ALSO REPORTED TO DR. CURRIE. DR. CURRIE AGREEABLE TO UPDATE PATIENT'S BROTHER LUIS REGARDING POOR PROGNOSIS
--- NOTE | 2021-04-01 14:19 | NUR ---
PATIENT'S BROTHER LUIS CALLED REGARDING UPDATE. DEFERRED TO DR. CURRIE FOR THOROUGH UPDATE.
--- NOTE | 2021-04-01 15:30 | NUR ---
DR. CURRIE CALLED AND SAID PATIENT'S BROTHER WISHED TO CHANGE PATIENT'S CODE STATUS TO DNR AND AWAIT FAMILY DECISION TO WITHDRAW CARE.
--- NOTE | 2021-04-01 20:00 | NUR ---
NOTED GROSS HEMATURIA IN VELARDE CATHETER DRAINAGE BAG DARK RED IN COLOR WITH CLOTS PRESENT.
[2021-04-02] VITALS (148 sets, daily range): BP systolic 117; BP diastolic 56; PULSE 92; TEMP 98.7; O2SAT 5–100
--- NOTE | 2021-04-02 | NUR ---
NOTED INCREASED RESIDUAL FROM OG TUBE OF 275ML, PLACED ON HOLD AT THIS TIME PER ORDERS
[2021-04-02 02:00] LABS: MEAN CORPUSCULAR HGB CONC 31 g/dl (33.0-37.0); MEAN PLATELET VOLUME 12.6 fl (7.4-10.4); PLATELET COUNT 126 K/mm3 (130-400); RED BLOOD COUNT 2.36 M/mm3 (4.20-5.60); REDCELL DISTRIBUTION WIDTH-CV 17.1 % (11.5-14.5)
[2021-04-02 02:05] LABS: HEMATOCRIT 25.9 % (42.0-52.0); MEAN CELL VOLUME 110 fl (80.0-100.0); MEAN CORPUSCULAR HEMOGLOBIN 34 pg (27-31)
[2021-04-02 02:15] LABS: C-REACTIVE PROTEIN 4.18 mg/dL (0.00-0.50); CALCIUM 6.7 mg/dL (8.4-10.2); CREATININE, serum 5.35 mg/dL (0.72-1.25); MAGNESIUM 2.1 mg/dL (1.6-2.6); PHOSPHOROUS 10.9 mg/dL (2.3-4.7)
--- NOTE | 2021-04-02 02:15 | NUR ---
NOTED PATIENT WITH RHYTHM CHANGE ON MONITOR AND LOW BP DESPITE NO CHANGES TO DRIPS, ENTERED ROOM TO ASSESS AND NOTED THAT BP ON RECYCLE AGAIN LOW TITRATION OF LEVOPHED BEGAN AND NOTIFIED DAVID SNOW OF CHANGES, EKG ORDERED AND NOTIFIED RT WALESKA. EKG OBTAINED, NOTIFIED DAVID SNOW. ALSO BROTHER PAT NOTIFIED, VITAL SIGNS CONTINUE TO DECLINE INCLUDING PULSE OX, BP AND RHYTHM CHANGES NOTED. 0200 BROTHER AT BEDSIDE ALONG WITH EDY HERNANDEZ WHO EXPLAINED SITUATION TO PAT AND HE STATED AT THIS TIME THAT HE DID NOT WANT TO PERSUE FURTHER INTERVENTIONS INFORMED HIM THAT WE WOULD PLACE PATIENT ON HIS BACK AGAIN, STAFF ALSO NOTIFIED PATIENT'S NIECE,REFUGIO WHO IS GOING TO NOTIFY TWO OTHER SISTERS PER HER DAD (PAT) CHOOSING. ALSO REQUEST AND MADE CONTACT WITH LEARNING CENTER INSTRUCTOR FOR PATIENT PER PAT'S REQUEST. PATIENT PLACED SUPINE AND MADE COMFORTABLE PAT AT BEDSIDE NOTED THAT BP STABALIZED ALONG WITH PO2 AND HEART RATE ALTHOUGH RHYTHM REGULAR CONTINUES WITH ST ELEVATION.
[2021-04-02 02:20] LABS: POTASSIUM 6.1 mmol/L (3.5-4.5)
[2021-04-02 02:56] LABS: BAND 18 % (0-10); LYMPHOCYTE 2 % (20.0-51.0); NEUTROPHILS 76 % (42.0-75.2)
[2021-04-02 02:57] LABS: ANISOCYTOSIS 1+; BURR CELLS 1+; PLATELET ESTIMATE DECREASED (NORMAL)
[2021-04-02 02:58] LABS: SCHISTOCYTES 1+
--- NOTE | 2021-04-02 03:26 | NUR ---
PATIENT CONTINUES WITH SAME HEART RHYTHM AND RATE PREVIOUSLY NOTED, BP MAINTAING IN THE 120'S OVER 50'S AND PULSE OX IN THE UPPER 90'S ON 100% FiO2 VIA VENTILATOR, PATIENT'S NIECES AND BROTHER ALL AT BEDSIDE, DAVID SNOW EXPLAINED THAT ALTHOUGH HE IS NOT IN CRITICAL OF A CONDITION PRIOR TO CHANGE OF POSITION PATIENT IS STILL VERY SICK BUT NOT IMMINENT, AND WOULD AT THIS TIME ALLOW THEM TO HAVE TIME TO DISCUSS WHETHER OR NOT TO WITHDRAW CARE ALSO SHOWED UP SHORTLY AFTER THIS NURSE AND EDY LEFT ROOM AND IS PRESENT WITH PATIENT AT THIS TIME ALONG WITH FAMILY
--- NOTE | 2021-04-02 04:57 | NUR ---
SPOKE WITH PATIENT FAMILY AND DECISION MADE TO MOVE FORWARD WITH COMPASSIONATE EXTUBATION AND COMFORT CARES. INFORMED DAVID SNOW OF FAMILY WISHES, QUALITY ASSURANCE SUPERVISOR BODY AND RT ALSO NOTIFIED
--- NOTE | 2021-04-02 05:09 | NUR ---
patient extubated at this time by rt, spontaneously breathing at this time
[2021-04-02 05:15] LABS: TROPONIN-I 0.227 ng/mL (0.00-0.033)
[2021-04-02 05:16] LABS: ANION GAP 23 mmol/L (7-16); BLOOD UREA NITROGEN > 125 mg/dL (8-26); CALCIUM 7.6 mg/dL (8.4-10.2); CHLORIDE 101 mmol/L (98-107); CREATININE, serum 6.11 mg/dL (0.72-1.25); GLUCOSE 265 mg/dL (70-99); MAGNESIUM 2.4 mg/dL (1.6-2.6); SODIUM 135 mmol/L (136-145)
--- NOTE | 2021-04-02 05:17 | NUR ---
NOTED NO AUSCULATEABLE HEART RATE OR RESPIRATIONS NO BP AT THIS TIME VERIFIED BY SECOND RNNADEGE PATIENT'S FAMILY REMAINS AT BEDSIDE
[2021-04-02 05:18] LABS: POTASSIUM 6.9 mmol/L (3.5-4.5)
[2021-04-02 05:19] LABS: CARBON DIOXIDE 11 mmol/L (23-31)
--- NOTE | 2021-04-02 05:35 | NUR ---
Contacted [facility] and spoke with Zahraa. Patient is not a candidate for donation. Referral # [id number]
--- NOTE | 2021-04-02 06:15 | NUR ---
PATIENT'S FAMILY LEFT AT THIS TIME TAKING ALL BELONGINGS FROM PATIENT INCLUDING GLASSES, CELL PHONE, STRATEGIC BUSINESS DEVELOPMENT, HEARING AIDES AND CLOTHING PICC LINE, PERIPHERAL IV AND VELARDE REMOVED FROM PATIENT, HOME NOTIFIED THAT PATIENT IS READY FOR THEIR SERVICES BY NIKKI MCNALLYBATCHER OPERATOR
[2021-04-02 23:04] LABS: HEPATITIS B SURFACE ANTIBODY <2.0 (()); HEPATITIS B SURFACE ANTIGEN Negative (Negative); HEPATITIS C VIRUS ANTIBODY Negative (Negative)
== END 2021-04-02 13:40 | disposition expired | DRG 208 ==
LOC: COL.ER 11:05 → ICU 16:06
PROVIDERS: Emergency Medicine; Internal Medicine; Internal Medicine Pulmonary Disease; Nurse Practitioner; Nurse Practitioner Family; Registered Nurse; ADMIT Student in an Organized Health Care Education/Training Program
PROC: XW033E5 Introduction of Remdesivir Anti-infective into Peripheral Vein, Percutaneous Approach, New Technology Group 5 (ICD-10-PCS; 2021-03-23)
PROC: 02HV33Z Insertion of Infusion Device into Superior Vena Cava, Percutaneous Approach (ICD-10-PCS; 2021-03-23)
PROC: 5A09457 Assistance with Respiratory Ventilation, 24-96 Consecutive Hours, Continuous Positive Airway Pressure (ICD-10-PCS; 2021-03-24)
PROC: 5A1945Z Respiratory Ventilation, 24-96 Consecutive Hours (ICD-10-PCS; principal; 2021-03-29)
PROC: 0BH17EZ Insertion of Endotracheal Airway into Trachea, Via Natural or Artificial Opening (ICD-10-PCS; 2021-03-29)
PROC: 0JH63XZ Insertion of Tunneled Vascular Access Device into Chest Subcutaneous Tissue and Fascia, Percutaneous Approach (ICD-10-PCS; 2021-04-01)
PROC: 02HV33Z Insertion of Infusion Device into Superior Vena Cava, Percutaneous Approach (ICD-10-PCS; 2021-04-01)
PROC: B5181ZA Fluoroscopy of Superior Vena Cava using Low Osmolar Contrast, Guidance (ICD-10-PCS; 2021-04-01)
DX: U07.1 COVID-19 (principal); J12.82 Pneumonia due to coronavirus disease 2019; J96.01 Acute respiratory failure with hypoxia; E87.2 Acidosis; N17.9 Acute kidney failure, unspecified; I24.8 Other forms of acute ischemic heart disease; I48.92 Unspecified atrial flutter; E87.0 Hyperosmolality and hypernatremia; Z66 Do not resuscitate; J44.9 Chronic obstructive pulmonary disease, unspecified; I25.10 Atherosclerotic heart disease of native coronary artery without angina pectoris; E78.5 Hyperlipidemia, unspecified; M10.9 Gout, unspecified; K21.9 Gastro-esophageal reflux disease without esophagitis; E03.9 Hypothyroidism, unspecified; E86.0 Dehydration; I48.91 Unspecified atrial fibrillation; D64.9 Anemia, unspecified; I45.10 Unspecified right bundle-branch block; I12.9 Hypertensive chronic kidney disease with stage 1 through stage 4 chronic kidney disease, or unspecified chronic kidney disease; N18.9 Chronic kidney disease, unspecified; E11.22 Type 2 diabetes mellitus with diabetic chronic kidney disease; E11.65 Type 2 diabetes mellitus with hyperglycemia; E87.5 Hyperkalemia; I95.9 Hypotension, unspecified; Z95.1 Presence of aortocoronary bypass graft; Z79.84 Long term (current) use of oral hypoglycemic drugs; Z79.82 Long term (current) use of aspirin; Z51.5 Encounter for palliative care; Z23 Encounter for immunization
CPT/HCPCS: 99223-AI; 99233-AI; A4314; C1751; C9113; J0248; J0282; J0610; J0692; J0696; J1100; J1644; J1815; J2060; J2250; J2270; J2543; J2704; J3010; J3370; J3475; J7030; J7040; J7050; J7060; J7120; Q0249